=== PATIENT | female | born 1995 | race Caucasian/White ===

== ENCOUNTER 2019-02-15 15:55 | Inpatient (IN) | payer OTHER ==
[~2019-02-15] VITALS: Ht 152.4 cm; Wt 48.0 kg
[2019-02-15] MEDS ORDERED: ONDANSETRON 4 MG INJ IV STA (19:24)
[2019-02-15] MEDS ORDERED: morphine 4 MG/ML VIAL IV STA (19:24)
[2019-02-15] MEDS ORDERED: ONDANSETRON 4 MG INJ IV PRN ×2 (19:30→22:00)
[2019-02-15] MEDS ORDERED: ACETAMINOPHEN 325 MG TAB PO PRN ×2 (19:30→22:00)
[2019-02-15] MEDS ORDERED: morphine 4 MG/ML VIAL ONE (19:54)
[2019-02-15] MEDS ORDERED: ONDANSETRON 4 MG INJ ONE (19:54)
[2019-02-15 21:21] VITALS: BP 102/69; PULSE 64; RESP 20
--- NOTE | 2019-02-15 21:29 | ERD ---
ER Documentation Chief Complaint Chief Complaint pt is [place] family sent by clinic, possible hepatic abscess, HPI Patient is a 23-year-old female who presents with abdominal pain and vomiting. The patient has had 2 days of right upper quadrant abdominal pain and vomiting. She rates it as an 8 out of 10. She was seen at [facility] emergency department today and had a CT scan which showed a possible hepatic abscess as well as a bili Fide and biliary leak. She had a gallbladder removal done on January 25 and has had complications from this. She was going to be transferred but there was some sort of issue with the transfer and she said that her insurance is accepted here at [facility] which is why she came to [facility]. She was brought in by her boyfriend. ROS All systems reviewed and are negative except as per history of present illness. Allergies Allergies: Coded Allergies: No Known Allergy (Unverified , 02/15/19) FmHx Family History: No diabetes Physical Exam Vitals Vital Signs Date Temp Pulse Resp B/P (MAP) Pulse Ox O2 O2 Flow FiO2 Time Delivery Rate 02/15/19 99.2 79 16 110/67 98 16:06 (81) Physical Exam Const: Mild distress Head: Atraumatic Eyes: Normal Conjunctiva ENT: Normal External Ears, Nose and Mouth. Neck: Full range of motion. No meningismus. Resp: Clear to auscultation bilaterally Cardio: Regular rate and rhythm, no murmurs Abd: Right upper quadrant tenderness to palpation without rebound or guarding Skin: No petechiae or rashes Back: No midline or flank tenderness Ext: No cyanosis, or edema Neur: Awake and alert Psych: Normal Mood and Affect Result Diagram: 02/15/19181802/15/191818 Results 24 hrs Laboratory Tests Test 02/15/19 18:19 02/15/19 18:30 White Blood Count 6.2 10^3/ul Red Blood Count 4.10 10^6/ul Hemoglobin 12.0 g/dl Hematocrit 35.2 % Mean Corpuscular Volume 85.9 fl Mean Corpuscular Hemoglobin 29.3 pg Mean Corpuscular Hemoglobin Concent 34.1 g/dl Red Cell Distribution Width 13.2 % Platelet Count 296 10^3/UL Mean Platelet Volume 10.6 fl Neutrophils % 53.7 % Lymphocytes % 30.0 % Monocytes % 9.7 % Eosinophils % 5.5 % Basophils % 0.8 % Nucleated Red Blood Cells % 0.0 /100WBC Neutrophils # 3.3 10^3/ul Lymphocytes # 1.9 10^3/ul Monocytes # 0.6 10^3/ul Eosinophils # 0.0 10^3/ul Basophils # 0.1 10^3/ul Nucleated Red Blood Cells # 0.0 10^3/ul Sodium Level 142 mmol/L Potassium Level 3.6 mmol/L Chloride Level 109 mmol/L Carbon Dioxide Level 25 mmol/L Anion Gap 8 Blood Urea Nitrogen 7 mg/dl Creatinine 0.66 mg/dl Est Glomerular Filtrat Rate mL/min > 60 mL/min Glucose Level 79 mg/dl Calcium Level 9.1 mg/dl Total Bilirubin 0.5 mg/dl Direct Bilirubin 0.00 mg/dl Indirect Bilirubin 0.5 mg/dl Aspartate Amino Transf (AST/SGOT) 29 IU/L Alanine Aminotransferase (ALT/SGPT) 30 IU/L Alkaline Phosphatase 82 IU/L Troponin I < 0.012 ng/ml Total Protein 6.7 g/dl Albumin 3.8 g/dl Globulin 2.90 g/dl Albumin/Globulin Ratio 1.31 Lipase 62 U/L Prothrombin Time 13.9 Sec Prothrombin Time Ratio 1.1 INR International Normalized Ratio 1.06 Activated Partial Thromboplast Time 29.5 Sec Current Medications Medications Dose Sig/Dane Start Time Status Last (Trade) Ordered Route PRN Stop Time Admin Dose Reason Admin Morphine 4 mg ONCE STAT 02/15/19 DC 02/15/19 Sulfate IV 19:24 19:56 (morphine) 02/15/19 19:26 Ondansetron 4 mg ONCE STAT 02/15/19 DC 02/15/19 HCl (Zofran IV 19:24 19:56 Inj) 02/15/19 19:26 Procedures/MDM Patient is a 23-year-old female who presents with abdominal pain and biliary leak. I spoke with Dr. Nazario the surgeon on-call who recommended GI consultat ion. I spoke to Dr. Patrick the GI doctor on-call who will see the patient in consultation. Both the surgeon and GI doctor recommended HIDA scan which I have ordered. The patient has [facility] insurance and I spoke with Dr. Kamara for admission to a medical surgical bed. Further treatment will be based on the results of the HIDA scan. Departure Diagnosis: Primary Impression: Abdominal pain Abdominal location: right upper quadrant Qualified Codes: R10.11 - Right upper quadrant pain Additional Impression: Bile leak Condition: Serious MARIELY SHARP MD Feb 15, 2019 21:29
[2019-02-15] MEDS: CEFTRIAXONE 1 GM/50 ML (PMX) 50 ML IVPB SCH (22:18)
[2019-02-15] MEDS: DEXTROSE 5%-0.45% NACL 1,000 ML IV SCH (22:18)
[2019-02-15 23:02] VITALS: Ht 152.4 cm; Wt 48.0 kg
--- NOTE | 2019-02-15 23:40 | QN ---
Documentation Comment [id number] RICK NGUYEN MD Feb 15, 2019 23:40
[2019-02-16 02:17] VITALS: BP 103/64; PULSE 63; RESP 18
[2019-02-16] MEDS ORDERED: PANTOPRAZOLE 40 MG INJ IV SCH (06:00)
[2019-02-16] MEDS ORDERED: INDOMETHACIN 50 MG SUPP PR ONE (07:30)
[2019-02-16 08:19] VITALS: BP 94/66; PULSE 73; RESP 18
[2019-02-16] MEDS: FAMOTIDINE 20 MG INJ IV SCH ×3 (08:38→22:17)
--- NOTE | 2019-02-16 09:13 | CONS ---
Assessment/Plan Assessment/Plan Assessment/Plan (Daily) Possible biloma, versus abscess, versus biliary leak I am unable to access the outside medical records. The computer is not transferred them over so I cannot review the CT findings. HIDA scan Will likely need ERCP LFTs are within normal limits today Further recommendations based on HIDA scan. May need to repeat CT as well for possible IR drainage. Consultation Date/Type/Reason Admit Date/Time Feb 15, 2019 at 19:25 Date/Time of Note DATE: 02/16/19 TIME: 09:07 Hx of Present Illness The patient is a 23-year-old female who recently underwent a lap gissel approximately 3 weeks ago at [facility]. According the patient, she developed a hematoma and required a second surgical operation. Neither op report are available. Patient was doing well until a few days ago where she had some nausea, emesis and diarrhea. She presented to an outside hospital where she was told that she had a possible bile leak abscess.. She was transferred to our hospital. I am unable to access those records at this time. Patient is not the best historian. She is unclear why she required lap gissel or her second surgery. Past Medical History Medical History: no pertinent history Medications Current Medications Ondansetron HCl (Zofran Inj) 4 mg BRIDGE ORDER PRN IV NAUSEA/VOMITING; Start 02/15/19 at 19:30; Stop 02/16/19 at 19:29 Acetaminophen (Tylenol Tab) 650 mg ER BRIDGE PRN PO .MILD PAIN 1-3 OR TEMP; Start 02/15/19 at 19:30; Stop 02/16/19 at 19:29 Dextrose/Sodium Chloride 1,000 ml @ 70 mls/hr [id number] IV Last administered on 02/15/19at 22:18; Admin Dose 70 MLS/HR; Start 02/15/19 at 22:00 Ceftriaxone Sodium 50 ml @ 100 mls/hr Q24H IVPB Last administered on 02/15/19at 22:18; Admin Dose 100 MLS/HR; Start 02/15/19 at 22:00 Acetaminophen (Tylenol Tab) 650 mg Q6H PRN PO MILD PAIN(1-3)OR ELEVATED TEMP; Start 02/15/19 at 22:00 Ondansetron HCl (Zofran Inj) 4 mg Q6H PRN IV NAUSEA AND/OR VOMITING; Start 02/15/19 at 22:00 Morphine Sulfate (morphine) 2 mg Q6H PRN IV SEVERE PAIN LEVEL 7-10; Start 02/15/19 at 22:00 Famotidine (Pepcid Iv) 20 mg BID IV Last administered on 02/16/19at 08:38; Admin Dose 20 MG; Start 02/16/19 at 09:00 Allergies: Coded Allergies: No Known Allergy (Unverified , 02/15/19) Past Surgical History Past Surgical Hx: other (Lap gissel and reexploration) Social History Smoking Status: Never smoker Exam/Review of Systems Exam Vitals Vital Signs Date Temp Pulse Resp B/P (MAP) Pulse Ox O2 O2 Flow FiO2 Time Delivery Rate 02/16/19 98.7 73 18 94/66 (75) 98 08:19 02/15/19 Room Air 20:39 Intake and Output 02/15/19 02/15/19 02/16/19 1515:00 23:00 07:00 IntakeIntake Total 50 ml 420 ml BalanceBalance 50 ml 420 ml Constitutional: alert, oriented, well developed Head: normocephalic Eyes: nl conjunctiva Neck: supple, non-tender Respiratory: clear to auscultation Cardiovascular: regular rate and rhythm Gastrointestinal: soft Musculoskeletal: nl extremities to inspection Extremities: normal pulses 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 Skin: nl turgor, rash or lesions Results Result Diagram: 02/16/19 0500 02/16/19 0500 Results 24hrs Laboratory Tests Test 02/15/19 18:19 02/15/19 18:30 02/15/19 20:30 02/15/19 20:46 White Blood Count 6.2 Red Blood Count 4.10 L Hemoglobin 12.0 Hematocrit 35.2 L Mean Corpuscular 85.9 Volume Mean Corpuscular 29.3 Hemoglobin Mean Corpuscular 34.1 Hemoglobin Concent Red Cell 13.2 Distribution Width Platelet Count 296 Mean Platelet Volume 10.6 H Neutrophils % 53.7 Lymphocytes % 30.0 Monocytes % 9.7 Eosinophils % 5.5 Basophils % 0.8 Nucleated Red Blood 0.0 Cells % Neutrophils # 3.3 Lymphocytes # 1.9 Monocytes # 0.6 Eosinophils # 0.0 Basophils # 0.1 Nucleated Red Blood 0.0 Cells # Sodium Level 142 Potassium Level 3.6 Chloride Level 109 Carbon Dioxide Level 25 Anion Gap 8 Blood Urea Nitrogen 7 Creatinine 0.66 Est Glomerular > 60 Filtrat Rate mL/min Glucose Level 79 Calcium Level 9.1 Total Bilirubin 0.5 Direct Bilirubin 0.00 Indirect Bilirubin 0.5 Aspartate Amino 29 Transf (AST/SGOT) Alanine 30 Aminotransferase (AL T/SGPT) Alkaline Phosphatase 82 Troponin I < 0.012 Total Protein 6.7 Albumin 3.8 Globulin 2.90 Albumin/Globulin 1.31 Ratio Lipase 62 Prothrombin Time 13.9 Prothrombin Time 1.1 Ratio INR International 1.06 Normalized Ratio Activated 29.5 Partial Thromboplast Time Urine Color YELLOW Urine Clarity CLOUDY A Urine pH 5.0 Urine Specific 1.016 [place] Urine Ketones TRACE A Urine Nitrite NEGATIVE Urine Bilirubin NEGATIVE Urine Urobilinogen NEGATIVE Urine Leukocyte 1+ H Esterase Urine Microscopic 4 RBC Urine Microscopic 7 H WBC Urine Squamous MANY A Epithelial Cells Urine Mucus MANY A Urine Hemoglobin NEGATIVE Urine Glucose NEGATIVE Urine Total Protein NEGATIVE POC Beta HCG, NEGATIVE Qualitative Test 02/16/19 05:00 White Blood Count 6.2 Red Blood Count 4.00 L Hemoglobin 11.6 L Hematocrit 35.2 L Mean Corpuscular 88.0 Volume Mean Corpuscular 29.0 Hemoglobin Mean Corpuscular 33.0 Hemoglobin Concent Red Cell 13.3 Distribution Width Platelet Count 281 Mean Platelet Volume 10.8 H Immature 0.300 Granulocytes % Neutrophils % 46.0 Lymphocytes % 37.2 Monocytes % 9.2 Eosinophils % 6.3 Basophils % 1.0 Nucleated Red Blood 0.0 Cells % Immature 0.020 Granulocytes # Neutrophils # 2.9 Lymphocytes # 2.3 Monocytes # 0.6 Eosinophils # 0.4 Basophils # 0.1 Nucleated Red Blood 0.0 Cells # Sodium Level 141 Potassium Level 3.4 L Chloride Level 109 Carbon Dioxide Level 25 Anion Gap 7 Blood Urea Nitrogen 5 L Creatinine 0.60 Est Glomerular > 60 Filtrat Rate mL/min Glucose Level 79 Calcium Level 8.8 Medications Medication Current Medications Ondansetron HCl (Zofran Inj) 4 mg BRIDGE ORDER PRN IV NAUSEA/VOMITING; Start 02/15/19 at 19:30; Stop 02/16/19 at 19:29 Acetaminophen (Tylenol Tab) 650 mg ER BRIDGE PRN PO .MILD PAIN 1-3 OR TEMP; Start 02/15/19 at 19:30; Stop 7/13/19 at 19:29 Dextrose/Sodium Chloride 1,000 ml @ 70 mls/hr [id number] IV Last administered on 02/15/19at 22:18; Admin Dose 70 MLS/HR; Start 02/15/19 at 22:00 Ceftriaxone Sodium 50 ml @ 100 mls/hr Q24H IVPB Last administered on 02/15/19at 22:18; Admin Dose 100 MLS/HR; Start 02/15/19 at 22:00 Acetaminophen (Tylenol Tab) 650 mg Q6H PRN PO MILD PAIN(1-3)OR ELEVATED TEMP; Start 02/15/19 at 22:00 Ondansetron HCl (Zofran Inj) 4 mg Q6H PRN IV NAUSEA AND/OR VOMITING; Start 02/15/19 at 22:00 Morphine Sulfate (morphine) 2 mg Q6H PRN IV SEVERE PAIN LEVEL 7-10; Start 02/15/19 at 22:00 Famotidine (Pepcid Iv) 20 mg BID IV Last administered on 02/16/19at 08:38; Admin Dose 20 MG; Start 02/16/19 at 09:00 ABILIO DARLING MD Feb 16, 2019 09:13
--- NOTE | 2019-02-16 10:50 | CONS ---
Assessment/Plan Assessment/Plan Assessment/Plan (Daily) Assessment: Nausea/vomiting Upper quadrant abdominal pain Diarrhea Rule out bile leak Recent lap gissel -3 weeks ago Plan: Clear liquid diet N.p.o. after midnight HIDA scan is pending ERCP tomorrow -unable to perform procedure today due to OR being unavailable Continue supportive treatment Patient seen in collaboration with Dr. Patrick Consultation Date/Type/Reason Admit Date/Time Feb 15, 2019 at 19:25 Date of Consultation: Feb 16, 2019 Type of Consult GI Reason for Consultation Nausea/vomiting/diarrhea Date/Time of Note DATE: 02/16/19 TIME: 10:33 Hx of Present Illness This is a 23-year-old female who was admitted from outside hospital for possible biloma. Patient has a recent history of cholecystectomy 3 weeks ago. Patient developed nausea, vomiting, right upper quadrant pain and diarrhea 2 days ago which prompted her to come to ED where she was diagnosed with bile leak abscess. Reportedly CT of the abdomen shows possible biloma versus abscess. HIDA scan is done, results are pending. If HIDA scan shows bile leak we will proceed with ERCP. If it shows abscess then IR drainage will be recommended. White blood count and liver function test are normal. Currently patient denies any nausea, vomiting, hematemesis, diarrhea or constipation. Meanwhile we will start the patient on clear liquid diet. Patient is scheduled for ERCP for tomorrow. Unable to perform procedure today due to logistics and OR being unavailable. Patient is followed by surgery as well. Gastrointestinal: no complaints (See HPI) Past Medical History Medical History: no pertinent history Medications Current Medications Ondansetron HCl (Zofran Inj) 4 mg BRIDGE ORDER PRN IV NAUSEA/VOMITING; Start 02/15/19 at 19:30; Stop 02/16/19 at 19:29 Acetaminophen (Tylenol Tab) 650 mg ER BRIDGE PRN PO .MILD PAIN 1-3 OR TEMP; Start 02/15/19 at 19:30; Stop 02/16/19 at 19:29 Dextrose/Sodium Chloride 1,000 ml @ 70 mls/hr [id number] IV Last administered on 02/15/19at 22:18; Admin Dose 70 MLS/HR; Start 02/15/19 at 22:00 Ceftriaxone Sodium 50 ml @ 100 mls/hr Q24H IVPB Last administered on 7/12/19at 22:18; Admin Dose 100 MLS/HR; Start 02/15/19 at 22:00 Acetaminophen (Tylenol Tab) 650 mg Q6H PRN PO MILD PAIN(1-3)OR ELEVATED TEMP; Start 02/15/19 at 22:00 Ondansetron HCl (Zofran Inj) 4 mg Q6H PRN IV NAUSEA AND/OR VOMITING; Start 02/15/19 at 22:00 Morphine Sulfate (morphine) 2 mg Q6H PRN IV SEVERE PAIN LEVEL 7-10; Start 02/15/19 at 22:00 Famotidine (Pepcid Iv) 20 mg BID IV Last administered on 02/16/19at 08:38; Admin Dose 20 MG; Start 02/16/19 at 09:00 Allergies: Coded Allergies: No Known Allergy (Unverified , 02/15/19) Past Surgical History Past Surgical Hx: other (Lap gissel and reexploration) Social History Smoking Status: Never smoker Exam/Review of Systems Exam Vitals Vital Signs Date Temp Pulse Resp B/P (MAP) Pulse Ox O2 O2 Flow FiO2 Time Delivery Rate 02/16/19 98.7 73 18 94/66 (75) 98 08:19 02/15/19 Room Air 20:39 Intake and Output 02/15/19 02/15/19 02/16/19 1414:59 22:59 06:59 IntakeIntake Total 470 ml BalanceBalance 470 ml Exam PHYSICAL EXAMINATION: GENERAL: Well developed, well nourished, alert & oriented x 3, in no acute distress SKIN: No lesions, no stigmata chronic liver disease, no evidence of bleeding d iathesis LYMPHATIC: No palpable lymphadenopathy. HEAD: Normocephalic, atraumatic, no tenderness. EYES: Pupils equal reactive to light and accommodation, full extraocular movements, sclera clear, non-icteric, no discharge. EARS/NOSE AND THROAT: Ears normal, nose normal, oropharynx normal, oral membra subhash well hydrated without lesions. NECK: Supple, no masses, thyroid normal, JVP within normal limits, carotids normal without bruits. CHEST: Inspection within normal limits. CARDIOVASCULAR: Heart: Regular rate and rhythm, no murmurs, gallops or rubs. Peripheral pulses present within normal limits, no cyanosis, clubbing or edemas. No pulsatile abdominal mass RESPIRATORY: Lungs clear to auscultation and percussion, no wheezing, no rubs GASTROINTESTINAL AND LIVER: Abdomen: Soft, right upper quadrant tenderness at the surgical site, non-distended, no hernias, no masses, no organomegaly, no ascites, no guarding, no rebound tenderness, normoactive bowel sounds. Rectal: Deferred. GENITOURINARY: Female genitalia within normal limits. EXTREMITIES: No cyanosis, clubbing or edema. Results Result Diagram: 02/16/19 0500 02/16/19 0500 Results 24hrs Laboratory Tests Test 02/15/19 18:19 02/15/19 18:30 02/15/19 20:30 02/15/19 20:46 White Blood Count 6.2 Red Blood Count 4.10 L Hemoglobin 12.0 Hematocrit 35.2 L Mean Corpuscular 85.9 Volume Mean Corpuscular 29.3 Hemoglobin Mean Corpuscular 34.1 Hemoglobin Concent Red Cell 13.2 Distribution Width Platelet Count 296 Mean Platelet Volume 10.6 H Neutrophils % 53.7 Lymphocytes % 30.0 Monocytes % 9.7 Eosinophils % 5.5 Basophils % 0.8 Nucleated Red Blood 0.0 Cells % Neutrophils # 3.3 Lymphocytes # 1.9 Monocytes # 0.6 Eosinophils # 0.0 Basophils # 0.1 Nucleated Red Blood 0.0 Cells # Sodium Level 142 Potassium Level 3.6 Chloride Level 109 Carbon Dioxide Level 25 Anion Gap 8 Blood Urea Nitrogen 7 Creatinine 0.66 Est Glomerular > 60 Filtrat Rate mL/min Glucose Level 79 Calcium Level 9.1 Total Bilirubin 0.5 Direct Bilirubin 0.00 Indirect Bilirubin 0.5 Aspartate Amino 29 Transf (AST/SGOT) Alanine 30 Aminotransferase (AL T/SGPT) Alkaline Phosphatase 82 Troponin I < 0.012 Total Protein 6.7 Albumin 3.8 Globulin 2.90 Albumin/Globulin 1.31 Ratio Lipase 62 Prothrombin Time 13.9 Prothrombin Time 1.1 Ratio INR International 1.06 Normalized Ratio Activated 29.5 Partial Thromboplast Time Urine Color YELLOW Urine Clarity CLOUDY A Urine pH 5.0 Urine Specific 1.016 [place] Urine Ketones TRACE A Urine Nitrite NEGATIVE Urine Bilirubin NEGATIVE Urine Urobilinogen NEGATIVE Urine Leukocyte 1+ H Esterase Urine Microscopic 4 RBC Urine Microscopic 7 H WBC Urine Squamous MANY A Epithelial Cells Urine Mucus MANY A Urine Hemoglobin NEGATIVE Urine Glucose NEGATIVE Urine Total Protein NEGATIVE POC Beta HCG, NEGATIVE Qualitative Test 02/16/19 05:00 White Blood Count 6.2 Red Blood Count 4.00 L Hemoglobin 11.6 L Hematocrit 35.2 L Mean Corpuscular 88.0 Volume Mean Corpuscular 29.0 Hemoglobin Mean Corpuscular 33.0 Hemoglobin Concent Red Cell 13.3 Distribution Width Platelet Count 281 Mean Platelet Volume 10.8 H Immature 0.300 Granulocytes % Neutrophils % 46.0 Lymphocytes % 37.2 Monocytes % 9.2 Eosinophils % 6.3 Basophils % 1.0 Nucleated Red Blood 0.0 Cells % Immature 0.020 Granulocytes # Neutrophils # 2.9 Lymphocytes # 2.3 Monocytes # 0.6 Eosinophils # 0.4 Basophils # 0.1 Nucleated Red Blood 0.0 Cells # Sodium Level 141 Potassium Level 3.4 L Chloride Level 109 Carbon Dioxide Level 25 Anion Gap 7 Blood Urea Nitrogen 5 L Creatinine 0.60 Est Glomerular > 60 Filtrat Rate mL/min Glucose Level 79 Calcium Level 8.8 Medications Medication Current Medications Ondansetron HCl (Zofran Inj) 4 mg BRIDGE ORDER PRN IV NAUSEA/VOMITING; Start 02/15/19 at 19:30; Stop 02/16/19 at 19:29 Acetaminophen (Tylenol Tab) 650 mg ER BRIDGE PRN PO .MILD PAIN 1-3 OR TEMP; Start 02/15/19 at 19:30; Stop 02/16/19 at 19:29 Dextrose/Sodium Chloride 1,000 ml @ 70 mls/hr [id number] IV Last administered on 02/15/19at 22:18; Admin Dose 70 MLS/HR; Start 02/15/19 at 22:00 Ceftriaxone Sodium 50 ml @ 100 mls/hr Q24H IVPB Last administered on 02/15/19at 22:18; Admin Dose 100 MLS/HR; Start 02/15/19 at 22:00 Acetaminophen (Tylenol Tab) 650 mg Q6H PRN PO MILD PAIN(1-3)OR ELEVATED TEMP; Start 02/15/19 at 22:00 Ondansetron HCl (Zofran Inj) 4 mg Q6H PRN IV NAUSEA AND/OR VOMITING; Start 02/15/19 at 22:00 Morphine Sulfate (morphine) 2 mg Q6H PRN IV SEVERE PAIN LEVEL 7-10; Start 02/15/19 at 22:00 Famotidine (Pepcid Iv) 20 mg BID IV Last administered on 02/16/19at 08:38; Admin Dose 20 MG; Start 02/16/19 at 09:00 LUCILLE HINOJOSA NP Feb 16, 2019 10:43
--- NOTE | 2019-02-16 11:35 | PSY ---
Date/Time of Note Date/Time of Note DATE: 02/16/19 TIME: 11:26 Psychiatric Subjective Eval Consent Pt consented to telemedicine: No Subjective Evaluation Patient location: inpatient Chief Complaint: pt is bib family sent by clinic, possible hepatic abscess, History of present illness Patient is a 23-year-old female who is currently admitted with abdominal pain and vomiting. [id number] evaluation, patient she is alert and oriented but she is fearful and very evasive. Patient states she takes a long acting monthly injection at [facility] but she does not remember what the name of the injection is attempted to call him review however the clinic is not open today. Family does not remember the name of the injection. Patient reports occasional episodes of auditory hallucination, difficulty sleeping and will order a very small dose of Seroquel. Explained to patient, very small dose of Seroquel at bedtime will be ordered and she agreed Past psychiatric history Long history of mental illness Hospitalization: other Medical history Problems Medical Problems: (1) Abdominal pain Status: Acute (2) Bile leak Status: Acute Allergies: Coded Allergies: No Known Allergy (Unverified , 02/15/19) Substance Abuse Substance abuse history: No Prior substance abuse treatmen: No Social History Marital status: other DPA/Conservatorship: No Psychiatric Objective Eval Review of Systems: Review of Systems: Not Applicable Physical Examination: Physical Examination: Not Applicable Mental Status Examination: Eye Contact: Poor Behavior: Suspicious Speech: Soft AFFECT: Constricted Though Process: Linear Thought Content: Hallucinations Laboratory Results Laboratory Tests Test 02/15/19 18:19 02/15/19 18:30 02/15/19 20:30 02/15/19 20:46 White Blood Count 6.2 10^3/ul Red Blood Count 4.10 10^6/ul Hemoglobin 12.0 g/dl Hematocrit 35.2 % Mean Corpuscular 85.9 fl Volume Mean Corpuscular 29.3 pg Hemoglobin Mean Corpuscular 34.1 g/dl Hemoglobin Concen t Red Cell 13.2 % Distribution Width Platelet Count 296 10^3/UL Mean Platelet 10.6 fl Volume Neutrophils % 53.7 % Lymphocytes % 30.0 % Monocytes % 9.7 % Eosinophils % 5.5 % Basophils % 0.8 % Nucleated Red 0.0 /100WBC Blood Cells % Neutrophils # 3.3 10^3/ul Lymphocytes # 1.9 10^3/ul Monocytes # 0.6 10^3/ul Eosinophils # 0.0 10^3/ul Basophils # 0.1 10^3/ul Nucleated Red 0.0 10^3/ul Blood Cells # Sodium Level 142 mmol/L Potassium Level 3.6 mmol/L Chloride Level 109 mmol/L Carbon Dioxide 25 mmol/L Level Anion Gap 8 Blood Urea 7 mg/dl Nitrogen Creatinine 0.66 mg/dl Est Glomerular > 60 mL/min Filtrat Rate mL/min Glucose Level 79 mg/dl Calcium Level 9.1 mg/dl Total Bilirubin 0.5 mg/dl Direct Bilirubin 0.00 mg/dl Indirect 0.5 mg/dl Bilirubin Aspartate Amino 29 IU/L Transf (AST/SGOT) Alanine 30 IU/L Aminotransferase (ALT/SGPT) Alkaline 82 IU/L Phosphatase Troponin I < 0.012 ng/ml Total Protein 6.7 g/dl Albumin 3.8 g/dl Globulin 2.90 g/dl Albumin/Globulin 1.31 Ratio Lipase 62 U/L Prothrombin Time 13.9 Sec Prothrombin Time 1.1 Ratio INR International 1.06 Normalized Ratio Activated 29.5 Sec Partial Thrombopl ast Time Urine Color YELLOW Urine Clarity CLOUDY Urine pH 5.0 Urine Specific 1.016 [place] Urine Ketones TRACE mg/dL Urine Nitrite NEGATIVE mg/dL Urine Bilirubin NEGATIVE mg/dL Urine NEGATIVE mg/dL Urobilinogen Urine Leukocyte 1+ Maldon[place]/ul Esterase Urine Microscopic 4 /HPF RBC Urine Microscopic 7 /HPF WBC Urine Squamous MANY /HPF Epithelial Cells Urine Mucus MANY /HPF Urine Hemoglobin NEGATIVE mg/dL Urine Glucose NEGATIVE mg/dL Urine Total NEGATIVE mg/dl Protein POC Beta HCG, NEGATIVE Qualitative Test 02/16/19 05:00 White Blood Count 6.2 10^3/ul Red Blood Count 4.00 10^6/ul Hemoglobin 11.6 g/dl Hematocrit 35.2 % Mean Corpuscular 88.0 fl Volume Mean Corpuscular 29.0 pg Hemoglobin Mean Corpuscular 33.0 g/dl Hemoglobin Concen t Red Cell 13.3 % Distribution Width Platelet Count 281 10^3/UL Mean Platelet 10.8 fl Volume Immature 0.300 % Granulocytes % Neutrophils % 46.0 % Lymphocytes % 37.2 % Monocytes % 9.2 % Eosinophils % 6.3 % Basophils % 1.0 % Nucleated Red 0.0 /100WBC Blood Cells % Immature 0.020 10^3/ul Granulocytes # Neutrophils # 2.9 10^3/ul Lymphocytes # 2.3 10^3/ul Monocytes # 0.6 10^3/ul Eosinophils # 0.4 10^3/ul Basophils # 0.1 10^3/ul Nucleated Red 0.0 10^3/ul Blood Cells # Sodium Level 141 mmol/L Potassium Level 3.4 mmol/L Chloride Level 109 mmol/L Carbon Dioxide 25 mmol/L Level Anion Gap 7 Blood Urea 5 mg/dl Nitrogen Creatinine 0.60 mg/dl Est Glomerular > 60 mL/min Filtrat Rate mL/min Glucose Level 79 mg/dl Calcium Level 8.8 mg/dl Assessment and Plan Assessment/Diagnosis Diagnosis Schizophrenia unspecified Recommendation/Plan Medication Management Seroquel 25 mg at bedtime Multiple antipsychotics: No Discharge Disposition: Other Legal Status: Voluntary (Does not meets criteria for 5150 hold) OSMAN DONALD NP Feb 16, 2019 11:35
[2019-02-16] MEDS: DEXTROSE 5%-0.45% NACL 1,000 ML IV SCH ×2 (12:18→15:52)
[2019-02-16] MEDS ORDERED: POTASSIUM CHLORIDE (SR) 20 MEQ TAB PO STA (13:31)
[2019-02-16] MEDS ORDERED: POTASSIUM CHLORIDE 100 ML IVPB SCH (14:00)
[2019-02-16 15:02] VITALS: BP 109/73; PULSE 84; RESP 18
[2019-02-16] MEDS ORDERED: IOHEXOL 14.3 MG(I)/ML (ADULT) BTL PO ONE (17:00)
[2019-02-16] MEDS: morphine 2 MG INJ IV PRN (18:00)
--- NOTE | 2019-02-16 18:32 | PN ---
Date/Time of Note Date/Time of Note DATE: 02/16/19 TIME: 18:29 Assessment/Plan VTE Prophylaxis Risk score (from Ns)>0 risk: 0 SCD applied (from Ns): Yes Pharmacological prophylaxis: NA/contraindicated Pharm contraindication: surgical contra Lines/Catheters [facility]): Peripheral IV Urinary Cath still in place: No Assessment/Plan Hospital Course 1. S.p lap. gissel in outside hospital. 2. Abdominal pain due to possible biloma, versus abscess, versus biliary leak per dr Nazario 3. Nausea, emesis and diarrhea after lap gissel. 4. UTI 5. Anemia 6. Anxiety 7. BAck pain, pt denied MVA or trauma Assessment/Plan -med record request -GI consult famotide BID -DVT consult -surgical consult dr Nazario -psych consult seen -Xrey of the back tomorrow due to Result Diagram: 02/16/19 0500 02/16/19 0500 Results 24hrs Laboratory Tests Test 02/15/19 18:30 02/15/19 20:30 02/15/19 20:46 02/16/19 05:00 Prothrombin Time 13.9 Prothrombin Time 1.1 Ratio INR International 1.06 Normalized Ratio Activated 29.5 Partial Thromboplast Time Urine Color YELLOW Urine Clarity CLOUDY A Urine pH 5.0 Urine Specific 1.016 [place] Urine Ketones TRACE A Urine Nitrite NEGATIVE Urine Bilirubin NEGATIVE Urine Urobilinogen NEGATIVE Urine Leukocyte 1+ H Esterase Urine Microscopic 4 RBC Urine Microscopic 7 H WBC Urine Squamous MANY A Epithelial Cells Urine Mucus MANY A Urine Hemoglobin NEGATIVE Urine Glucose NEGATIVE Urine Total Protein NEGATIVE POC Beta HCG, NEGATIVE Qualitative White Blood Count 6.2 Red Blood Count 4.00 L Hemoglobin 11.6 L Hematocrit 35.2 L Mean Corpuscular 88.0 Volume Mean Corpuscular 29.0 Hemoglobin Mean Corpuscular 33.0 Hemoglobin Concent Red Cell 13.3 Distribution Width Platelet Count 281 Mean Platelet Volume 10.8 H Immature 0.300 Granulocytes % Neutrophils % 46.0 Lymphocytes % 37.2 Monocytes % 9.2 Eosinophils % 6.3 Basophils % 1.0 Nucleated Red Blood 0.0 Cells % Immature 0.020 Granulocytes # Neutrophils # 2.9 Lymphocytes # 2.3 Monocytes # 0.6 Eosinophils # 0.4 Basophils # 0.1 Nucleated Red Blood 0.0 Cells # Sodium Level 141 Potassium Level 3.4 L Chloride Level 109 Carbon Dioxide Level 25 Anion Gap 7 Blood Urea Nitrogen 5 L Creatinine 0.60 Est Glomerular > 60 Filtrat Rate mL/min Glucose Level 79 Calcium Level 8.8 Subjective 24 Hr Interval Summary Gastrointestinal: no complaints Musculoskeletal: back pain Exam/Review of Systems Exam Vitals Vital Signs Date Temp Pulse Resp B/P (MAP) Pulse Ox O2 O2 Flow FiO2 Time Delivery Rate 02/16/19 98.6 84 18 109/73 99 15:02 (85) 02/15/19 Room Air 20:39 Intake and Output 02/15/19 02/15/19 02/16/19 1515:00 23:00 07:00 IntakeIntake Total 50 ml 420 ml BalanceBalance 50 ml 420 ml Constitutional: alert, oriented Respiratory: clear to auscultation Cardiovascular: regular rate and rhythm Gastrointestinal: soft, rebound or guarding, surgical scars; No nl liver, spleen, No non-tender, No ascites, No bowel sounds, No distended, No firm, No hepatomegaly, No mass, No splenomegaly, No tender, No other Musculoskeletal: joint tenderness, other (spine is tender) Results Results 24hrs Laboratory Tests Test 02/15/19 18:30 02/15/19 20:30 02/15/19 20:46 02/16/19 05:00 Prothrombin Time 13.9 Prothrombin Time 1.1 Ratio INR International 1.06 Normalized Ratio Activated 29.5 Partial Thromboplast Time Urine Color YELLOW Urine Clarity CLOUDY A Urine pH 5.0 Urine Specific 1.016 [place] Urine Ketones TRACE A Urine Nitrite NEGATIVE Urine Bilirubin NEGATIVE Urine Urobilinogen NEGATIVE Urine Leukocyte 1+ H Esterase Urine Microscopic 4 RBC Urine Microscopic 7 H WBC Urine Squamous MANY A Epithelial Cells Urine Mucus MANY A Urine Hemoglobin NEGATIVE Urine Glucose NEGATIVE Urine Total Protein NEGATIVE POC Beta HCG, NEGATIVE Qualitative White Blood Count 6.2 Red Blood Count 4.00 L Hemoglobin 11.6 L Hematocrit 35.2 L Mean Corpuscular 88.0 Volume Mean Corpuscular 29.0 Hemoglobin Mean Corpuscular 33.0 Hemoglobin Concent Red Cell 13.3 Distribution Width Platelet Count 281 Mean Platelet Volume 10.8 H Immature 0.300 Granulocytes % Neutrophils % 46.0 Lymphocytes % 37.2 Monocytes % 9.2 Eosinophils % 6.3 Basophils % 1.0 Nucleated Red Blood 0.0 Cells % Immature 0.020 Granulocytes # Neutrophils # 2.9 Lymphocytes # 2.3 Monocytes # 0.6 Eosinophils # 0.4 Basophils # 0.1 Nucleated Red Blood 0.0 Cells # Sodium Level 141 Potassium Level 3.4 L Chloride Level 109 Carbon Dioxide Level 25 Anion Gap 7 Blood Urea Nitrogen 5 L Creatinine 0.60 Est Glomerular > 60 Filtrat Rate mL/min Glucose Level 79 Calcium Level 8.8 Medications Medication Current Medications Dextrose/Sodium Chloride 1,000 ml @ 70 mls/hr [id number] IV Last administered on 02/16/19 15:52; Admin Dose 70 MLS/HR; Start 02/15/19 at 22:00 Ceftriaxone Sodium 50 ml @ 100 mls/hr Q24H IVPB Last administered on 02/15/19 22:18; Admin Dose 100 MLS/HR; Start 02/15/19 at 22:00 Acetaminophen (Tylenol Tab) 650 mg Q6H PRN PO MILD PAIN(1-3)OR ELEVATED TEMP; Start 02/15/19 at 22:00 Ondansetron HCl (Zofran Inj) 4 mg Q6H PRN IV NAUSEA AND/OR VOMITING; Start 02/15/19 at 22:00 Morphine Sulfate (morphine) 2 mg Q6H PRN IV SEVERE PAIN LEVEL 7-10 Last administered on 02/16/19 18:00; Admin Dose 2 MG; Start 02/15/19 at 22:00 Famotidine (Pepcid Iv) 20 mg BID IV Last administered on 02/16/19 08:38; Admin Dose 20 MG; Start 02/16/19 at 09:00 Quetiapine Fumarate (Seroquel) 25 mg HS PO ; Start 02/16/19 at 21:00 DEMOND GALEAS Feb 16, 2019 18:32
[2019-02-16 20:08] VITALS: BP 112/56; PULSE 77; RESP 16
[2019-02-16] MEDS ORDERED: QUETIAPINE 25 MG TAB PO SCH (21:00)
[2019-02-16] MEDS: CEFTRIAXONE 1 GM/50 ML (PMX) 50 ML IVPB SCH (22:18)
[2019-02-16] MEDS ORDERED: SOD CHLORIDE 0.9% 100 ML ONE (23:37)
[2019-02-16] MEDS ORDERED: IOHEXOL 300MG/ML 150 ML BTL ONE (23:37)
[2019-02-17] MEDS: DEXTROSE 5%-0.45% NACL 1,000 ML IV SCH ×2 (01:44→09:07)
[2019-02-17 02:20] VITALS: BP 107/59; PULSE 73; RESP 18
[2019-02-17] MEDS: FAMOTIDINE 20 MG INJ IV SCH (09:07)
[2019-02-17 09:14] VITALS: BP 100/64; PULSE 71; RESP 18
[2019-02-17] MEDS: morphine 2 MG INJ IV PRN (09:22)
[2019-02-17] MEDS ORDERED: POTASSIUM CHLORIDE 20 MEQ POWDER FOR ORAL SOLN PO ONE (11:30)
[2019-02-17] MEDS ORDERED: LEVO500T10 PO (11:33)
--- NOTE | 2019-02-17 11:33 | PDOCDIS ---
Discharge Instructions DIAGNOSIS Discharge Diagnosis postoperative fluid collection, seroma CONDITION [id number] Patient Condition: [id number] Stable HOME CARE INSTRUCTIONS: [id number] Diet Instructions: [id number] y Rest between Activity Avoid heavy lifting No Sexual Activity FOLLOW UP/APPOINTMENTS Follow-up Plan PCP 1 week -f/up surgery who performed surgery DEMOND GALEAS Feb 17, 2019 11:33
--- NOTE | 2019-02-17 11:36 | PN ---
Date/Time of Note Date/Time of Note DATE: 02/17/19 TIME: 11:31 Assessment/Plan Lines/Catheters IV [facility]ter Type (from [facility]): Peripheral IV Sena in Place (from Nrs): No Assessment/Plan Assessment/Plan Hospital day #1 for questionable biloma versus bile leak after lap gissel HIDA scan is normal. CT performed yesterday shows small fluid collection in the gallbladder fossa. Patient is afebrile and has normal white count. Collection should respond to antibiotics. OK to discharge home on oral antibiotics. Follow-up with her surgeon as outpatient. Subjective 24 Hr Interval Summary Constitutional: no complaints, improved Feeding: advancing diet Pain Control: well controlled Exam/Review of Systems Vital Signs Vitals Vital Signs Date Temp Pulse Resp B/P (MAP) Pulse Ox O2 O2 Flow FiO2 Time Delivery Rate 02/17/19 97.7 71 18 100/64 98 Room Air 09:14 (76) Intake and Output 02/16/19 02/16/19 02/17/19 1515:00 23:00 07:00 IntakeIntake Total 1250 ml 940 ml BalanceBalance 1250 ml 940 ml Exam Constitutional: alert, oriented, well developed Gastrointestinal: soft, tender (To epigastrium) Results Result Diagram: 02/17/19 1032 02/17/19 1032 Procedures Procedures [place] [address] Radiology Main Line: [phone] DIAGNOSTIC IMAGING REPORT Patient: JOAN SAHA : 1995 Age: 23 Sex: F [id number] DOS: 02/16/19 1847 Ordering MD: DEMOND GALEAS NP Location: 2NE Room/Bed: [facility] PROCEDURE: CT Abdomen and Pelvis With Intravenous Contrast CLINICAL INDICATION: Abdominal pain. Rule out abscess versus bile leak. TECHNIQUE: Axial computed tomography images of the abdomen and pelvis with intravenous contrast. Sagittal and coronal reformatted images were created and reviewed. CTDIvol (mGy) = 4.2; total DLP (mGy-cm) = 234. This CT exam was performed using one or more of the following dose reduction techniques: automated exposure control, adjustment of the mA and/or kV according to patient size, and/or use of iterative reconstruction technique. DICOM images are available. CONTRAST: 100 mL of Isovue 370 was administered intravenously. Oral contrast administere d. COMPARISON: None FINDINGS: LUNG BASES: Unremarkable. No mass. No consolidation. ABDOMEN: LIVER: Unremarkable. No mass. GALLBLADDER AND BILE DUCTS: Status post cholecystectomy. 3.5 x 2.4 x 1.6 cm fluid collection with air bubble in the gallbladder fossa. No ductal dilation. PANCREAS: Unremarkable. No mass. No ductal dilation. SPLEEN: Unremarkable. No splenomegaly. ADRENALS: Unremarkable. No mass. KIDNEYS AND URETERS: Unremarkable. No solid mass. No hydronephrosis. STOMACH AND BOWEL: Unremarkable. No obstruction. No mucosal thickening. PELVIS: APPENDIX: No findings to suggest acute appendicitis. BLADDER: Distended urinary bladder. REPRODUCTIVE: 2.8 cm right ovarian cyst. ABDOMEN and PELVIS: INTRAPERITONEAL SPACE: Unremarkable. No free air. No significant fluid collection. BONES/JOINTS: No acute fracture. No dislocation. SOFT TISSUES: Unremarkable. VASCULATURE: Unremarkable. No abdominal aortic aneurysm. LYMPH NODES: Unremarkable. No enlarged lymph nodes. IMPRESSION: 1. Status post cholecystectomy. 2. 3.5 x 2.4 x 1.6 cm fluid collection with air bubble in the gallbladder fossa. Question postsurgical fluid collection, biloma, abscess. 3. 2.8 cm right ovarian cyst. Almost certainly benign. No further workup needed. RPTAT:GG .Charlie Coates MD, MD Date Time Electronically viewed and signed by .Charlie Coates MD, on 02/17/2019 10:30 .Bobby/ ABILIO DARLING MD Feb 17, 2019 11:36
--- NOTE | 2019-02-17 11:37 | DS ---
Date/Time of Note Date/Time of Note DATE: 02/17/19 TIME: 11:36 Discharge Summary Admission/Discharge Info Admit Date/Time Feb 15, 2019 at 19:25 Discharge Date/Time Discharge Diagnosis postoperative fluid collection, seroma Patient Condition: Stable Consults Dr iBll. gastroenterology, dr Nazario surgery Procedures none Hospital Course This is a 23-year-old female who was admitted from outside hospital for possible biloma. Patient has a recent history of cholecystectomy 3 weeks ago. Patient developed nausea, vomiting, right upper quadrant pain and diarrhea 2 days ago which prompted her to come to ED where she was diagnosed with bile leak abscess. Reportedly CT of the abdomen shows possible biloma versus abscess. HIDA scan is done, results are pending. If HIDA scan shows bile leak we will proceed with ERCP. If it shows abscess then IR drainage will be recommended. White blood count and liver function test are normal. Currently patient denies any nausea, vomiting, hematemesis, diarrhea or constipation. Meanwhile pt is started on clear liquid diet. 1. S.p lap. gissel in outside hospital. 2. Abdominal pain due to possible biloma, versus abscess, versus biliary leak per dr Nazario 3. Nausea, emesis and diarrhea after lap gissel. 4. UTI 5. Anemia 6. Anxiety 7. BAck pain, unclear etiology. pt denied MVA or trauma We requested medical record. On the second day of hospitalization they are not available. GI prophylaxis was with famotide BID. Surgical consult was dr Nazario, he checked HIDA scan it is negative. There is no ERCP needed per dr Bill, GI consult. Pt was seen by psych. ORDINARY SEAMAN due to insomnia. Rossy recommended Seroquel 25 mg po q HS for insomnia. CT scan was done and there were found a small fluid collection. Dr Nazario recommended not to perform any procedure but give a/b for [address] abdomen showed no fracture or dislocation in lumbar area. Pt was complained on back pain, that might be need to be followed by PCP. Pt is able to ambulate, eat regular diet. Home Meds Active Scripts Levofloxacin* (Levofloxacin*) 500 Mg Tablet, 500 MG PO DAILY for 7 Days, TAB Prov:ADALDEMOND 02/17/19 Follow-up Plan PCP 1 week -f/up surgery MD who performed surgery Primary Care Provider Not On Staff Doctor Time spent on discharge: < 30 minutes Pending Labs Laboratory Tests Test 02/17/19 10:32 White Blood Count 5.6 10^3/ul (4.8-10.8) Red Blood Count 4.30 10^6/ul (4.20-5.40) Hemoglobin 12.5 g/dl (12.0-16.0) Hematocrit 37.0 % (37.0-47.0) Mean Corpuscular Volume 86.0 fl (82.0-101.0) Mean Corpuscular Hemoglobin 29.1 pg (29.0-33.0) Mean Corpuscular Hemoglobin Concent 33.8 g/dl (32.0-37.0) Red Cell Distribution Width 12.9 % (11.5-14.5) Platelet Count 305 10^3/UL (140-415) Mean Platelet Volume 10.1 fl (7.4-10.4) Immature Granulocytes % 0.200 % (0.001-0.429) Neutrophils % 57.2 % (39.0-77.0) Lymphocytes % 28.8 % (15.0-51.0) Monocytes % 8.6 % (0.0-11.0) Eosinophils % 4.1 % (0.0-7.0) Basophils % 1.1 % (0.0-2.0) Nucleated Red Blood Cells % 0.0 /100WBC (0.0-0.0) Immature Granulocytes # 0.010 10^3/ul (0.0-0.031) Neutrophils # 3.2 10^3/ul (1.6-7.5) Lymphocytes # 1.6 10^3/ul (0.8-2.9) Monocytes # 0.5 10^3/ul (0.3-0.9) Eosinophils # 0.2 10^3/ul (0.0-0.5) Basophils # 0.1 10^3/ul (0.0-0.1) Nucleated Red Blood Cells # 0.0 10^3/ul (0.0-0.0) Sodium Level 139 mmol/L (135-144) Potassium Level 3.4 mmol/L (3.5-5.1) Chloride Level 106 mmol/L (97-110) Carbon Dioxide Level 24 mmol/L (21-31) Anion Gap 9 (5-13) Blood Urea Nitrogen < 2 mg/dl (7-20) Creatinine 0.55 mg/dl (0.44-1.00) Est Glomerular Filtrat Rate mL/min > 60 mL/min (>60) Glucose Level 92 mg/dl (70-220) Calcium Level 9.2 mg/dl (8.4-10.2) Vitamin D 1,25-Dihydroxy 35.6 ng/ml (30-100) DEMOND GALEAS Feb 17, 2019 11:37
--- NOTE | 2019-02-18 06:25 | HP ---
DATE OF ADMISSION: 02/15/2019 HISTORY OF PRESENT ILLNESS: Michelle Camilo is a patient with history of cholecystectomy and post-pro cedure, per patient, has developed a hematoma, which was drained. She had her surgery done 9 and the patient presented today to [facility] where she left AMA and came to this hospital w ith abdominal pain. As per ER note, the patient had suspicion of gallbladder fossa fluid collection. The patient denies any fever and chills and is admitted for further management. PAST MEDICAL HISTORY: Cholecystectomy. ALLERGY HISTORY: NEGATIVE. FAMILY HISTORY: Negative. SOCIAL HISTORY: Negative. MEDICATIONS: None. REVIEW OF SYSTEMS: HEENT: Unremarkable. RESPIRATORY: Unremarkable. CARDIOVASCULAR: Unremarkable. ABDOMINAL: Pain, no nausea. EXTREMITIES: . PHYSICAL EXAMINATION: VITAL SIGNS: Stable. HEAD: Atraumatic, normocephalic. Pupils equal and reactive to light. NECK: Supple. LUNGS: Clear. CARDIOVASCULAR: S1, S2 normal. ABDOMEN: Soft, bowel sounds positive. Scar in the abdominal area noted. EXTREMITIES: No cyanosis, clubbing, or edema. CENTRAL NERVOUS SYSTEM: The patient is awake, alert, with no focal deficit. LABORATORY DATA: 2.6, WBC 6.2, hematocrit 35.2. IMPRESSION: 1. Abdominal pain. 2. Postoperative . 3. The patient has a history of anxiety and depression. PLAN: To keep her n.p.o., IV fluids, antibiotics, PPI, . Dictated By: RICK JOSEPH/NTS Conf#: [id number] DID#: [id number]
== END 2019-02-17 12:30 | disposition home or self-care (01) | DRG 920 ==
LOC: E/R 15:55 → 2NE 19:25
PROVIDERS: ADMIT Internal Medicine Nephrology; ATTEND Internal Medicine Nephrology
DX: K91.872 Postprocedural seroma of a digestive system organ or structure following a digestive system procedure (principal); N39.0 Urinary tract infection, site not specified; F20.9 Schizophrenia, unspecified; D64.9 Anemia, unspecified; M54.9 Dorsalgia, unspecified; Z90.49 Acquired absence of other specified parts of digestive tract; Y83.6 Removal of other organ (partial) (total) as the cause of abnormal reaction of the patient, or of later complication, without mention of misadventure at the time of the procedure
CPT/HCPCS: 36415; 74177; 78226; 80048; 80053; 81001; 81025; 82652; 83690; 84484; 85025; 85610; 85730; 93005; A9537; J0696; J2270; J2405; J3480; J7042; Q9967